=== PATIENT | male | born 1945 | race African-American/Black ===

== ENCOUNTER 2024-10-20 07:16 | Day surgery (SDC) | payer MEDICARE, OTHER ==
[~2024-10-20 07:16] MED LIST: MIDAZOLAM 2 MG/2 ML VIAL IV PRN
[2024-10-20 08:06] LABS: Glucose,Whole Blood 74 mg/dL (70-110)
[2024-10-20] MEDS: IV FLUID CONTINUATION 1,000 ML IV ONE ×2 (08:07→11:33)
[2024-10-20] MEDS: LACTATED RINGERS 1,000 ML IV SCH (08:17)
[2024-10-20] MEDS: HEPARIN SODIUM,PORCINE 5,000 UNIT/ML 1 ML VIAL SQ PRN (08:18)
[2024-10-20] MEDS: DEXAMETHASONE SOD PHOSPHATE 4 MG/ML 1 ML VIAL IV ONE (08:18)
[2024-10-20] MEDS: ONDANSETRON 4 MG/2 ML VIAL IVP ONE (08:18)
[2024-10-20] MEDS: ACETAMINOPHEN TAB 500 MG TAB PO PRN (08:18)
[2024-10-20 08:32] LABS: African American GFR (CKD) 68 (>60 ml/min/1.73 sqM); Anion Gap 5 mmol/L; Blood Urea Nitrogen 24 mg/dL (9-20); Calcium 9.7 mg/dL (8.4-10.2); Carbon Dioxide 30 mmol/L (22-30); Chloride 105 mmol/L (98-107); Glucose 84 mg/dL (74-99); Non-African American GFR(CKD) 59 (>60 ml/min/1.73 sqM); Potassium 4.4 mmol/L (3.5-5.1); Sodium 140 mmol/L (137-145)
[2024-10-20] MEDS ORDERED: LIDOCAINE 1% INJ 10MG/ML (20 ML MDV) ONE (08:50)
[2024-10-20] MEDS ORDERED: MIDAZOLAM 2 MG/2 ML VIAL ONE (08:50)
[2024-10-20] MEDS ORDERED: PROPOFOL 10 MG/ML 20 ML VIAL IV ONE (08:50)
[2024-10-20] MEDS ORDERED: SUCCINYLCHOLINE CHLORIDE 200 MG/10 ML VIAL IV ONE (08:50)
[2024-10-20] MEDS ORDERED: ROCURONIUM 10 MG/ML (5 ML VIAL) IV ONE (08:50)
[2024-10-20] MEDS ORDERED: NEOSTIGMINE 1 MG/ML 10 ML VIAL ONE (08:50)
[2024-10-20] MEDS ORDERED: fentaNYL (PF) 50 MCG/ML 2 ML AMP ONE (08:50)
[2024-10-20] MEDS ORDERED: GLYCOPYRROLATE 0.2 MG/ML 2 ML VIAL ONE (08:50)
[2024-10-20] MEDS ORDERED: HYDROmorphone (PF) 1 MG/ML ONE (08:50)
[2024-10-20] MEDS ORDERED: KETOROLAC 15 MG/ML 1 ML VIAL ONE (08:50)
[2024-10-20] MEDS: ceFAZolin 2 GM in DEXTROSE 5% IN WATER 50 ML IVPB PRN (08:52)
[2024-10-20] MEDS: BUPIVACAINE (PF) 0.25% 30 ML VIAL SQ ONE (09:08)
[2024-10-20] MEDS ORDERED: NALOXONE 0.4 MG/ML 1 ML VIAL IV PRN (10:20)
[2024-10-20] MEDS ORDERED: HYDROmorphone 0.5 MG/0.5 ML SYRINGE IVP PRN (10:20)
[2024-10-20] MEDS ORDERED: ONDANSETRON 4 MG/2 ML VIAL IVP PRN (10:20)
--- NOTE | 2024-10-20 10:25 | P.OP ---
Date of Procedure: 10/20/24 Preoperative Diagnosis: Cholecystitis Postoperative Diagnosis: Severe acute/chronic cholecystitis Procedure(s) Performed: Laparoscopic cholecystectomy Anesthesia: AARON Surgeon: Renzo Mccormack Estimated Blood Loss (ml): 20 Pathology: other (Gallbladder) Condition: stable Disposition: PACU Description of Procedure: T the patient was placed on the operating table. The patient received a general endotracheal tube anesthesia. The patients abdomen was prepped and draped in the usual sterile fashion. Through an infraumbilical stab incision, the fascia of the anterior abdominal wall was grasped with a pair of Kochers and then the Veress needle was placed in the peritoneal cavity. Position of the Veress needle was confirmed with positive drop test. The abdomen was then insufflated. After adequate insufflation, the 10 mm trocar was placed in the peritoneal cavity. Following this the laparoscope was placed in the peritoneal cavity. The patient was placed in the head-up, right side up position and then a 5 mm trocar was placed in the right lateral and right subcostal position under direct visualization. A 8 mm trocar was placed in the epigastric position. The gallbladder was grasped in the fundus and infundibulum. Traction on the gallbladder was placed in the lateral and the cephalad positions. The triangle of Calot was visualized.. The cystic duct was bluntly dissected until the union of the cystic duct and common bile duct was seen. A critical view of safety was achieved. The cystic duct was then divided and sealed with the Harmonic scissors. A PDS Endoloop was then placed throughout the cystic duct stump. The cystic artery divided and sealed with the Harmonic scissors. There was dense inflammatory reaction at the neck of the gallbladder. It was decided to divide the gallbladder just above the cystic duct at the neck of the gallbladder. To avoid any injury to the bile ducts. The gallbladder was then removed from the liver bed using Harmonic scissors. The gallbladder was then extracted through the epigastric port site. Operative field was checked for any bleeding spots and Harmonic scissors was used to coagulate the liver bed. The abdomen was irrigated. The trocars were removed. The skin was closed using interrupted 3-0 Vicryl suture. Dermabond dressing were applied. The patient tolerated the procedure well.
[2024-10-20] MEDS: HYDROmorphone 0.5 MG/0.5 ML SYRINGE IVP PRN (10:28)
[2024-10-20] MEDS: D5-0.45% NACL WITH KCL 20MEQ/L 1,000 ML IV SCH (12:37)
[2024-10-20] MEDS: HYDROcodone/APAP 5-325MG 1 EACH TAB PO PRN (12:42)
[2024-10-20] MEDS ORDERED: SYMBICORT 160-4.5 MCG INHALER INHALATION PRN (12:52)
[2024-10-20] MEDS ORDERED: TIOTROPIUM 2.5 MCG INHALER INHALATION PRN (12:58)
[2024-10-20] MEDS: ALBUTEROL NEBULIZED 2.5 MG/3 ML INHALATION SCH (13:43)
[2024-10-20] MEDS: HYDROmorphone 1 MG/ML 1 ML SYRINGE IVP PRN (21:33)
--- NOTE | 2024-10-21 02:36 | CONS ---
CONSULTATION REASON FOR CONSULTATION: Advice regarding atrial fibrillation, asthma, and other multiple medical issues requested by Surgery. HISTORY OF PRESENT ILLNESS: This 79-year-old gentleman with a past medical history of asthma, atrial fibrillation, underwent laparoscopic cholecystectomy for chronic cholecystitis. There is no history of any fever, rigors, or chills at this time. PAST MEDICAL HISTORY: Atrial fibrillation and asthma. Rest of the chart is also reviewed. HOME MEDICATION: Reviewed and included Crestor. Dose and rest of medications reviewed. ALLERGIES: None. FAMILY HISTORY: No history of heart disease or strokes in the family. SOCIAL HISTORY: No history of smoking. REVIEW OF SYSTEMS: 14-point review of systems is negative except as mentioned earlier. PHYSICAL EXAMINATION: VITAL SIGNS: Pulse is 72, blood pressure 116/64, and respirations 17. HEENT: Conjunctivae normal. NECK: No jugular venous distention. CARDIOVASCULAR: S1, S2. RESPIRATION: Breath sounds diminished at the bases. No rhonchi, no crackles. ABDOMEN: Soft, status post surgery. EXTREMITIES: Legs, no edema. NERVOUS SYSTEM: No focal deficit. LABORATORY DATA: BMP normal. ASSESSMENT: 1. Status post laparoscopic cholecystectomy for chronic cholecystitis. 2. Atrial fibrillation. 3. Asthma. 4. Hyperlipidemia. 5. History of sleep apnea. 6. History of prostate cancer. 7. History of multiple complex medical issues. RECOMMENDATION: 79-year-old gentleman presented after surgery. At this time, the patient is medically stable. Recommend to resume home medications. Eliquis may be initiated once okay with surgery. Otherwise, we will follow the patient closely with you. Incentive spirometry. Resume the home medication, bronchodilators. The patient may be asked to follow up with primary physician closely after discharge. MMODL / IJN: [id number] /
[2024-10-21 08:01] LABS: Basophils # (A) 0.04 X 10*3/uL (0.00-0.10); Basophils % (A) 0.4 %; Eosinophils # (A) 0.03 X 10*3/uL (0.04-0.35); Eosinophils % (A) 0.3 %; HCT 50.8 % (39.6-50.0); HGB 16.2 g/dL (13.0-17.0); Lymphocytes # (A) 1.31 X 10*3/uL (0.90-5.00); Lymphocytes % (A) 13.4 %; MCHC 31.9 g/dL (32.0-37.0); MCV 94.1 FL (80.0-97.0); Mean Platelet Volume 11.7 FL (9.5-12.2); Monocytes # (A) 0.76 X 10*3/uL (0.20-1.00); Monocytes % (A) 7.8 %; NRBC Per 100 WBC 0 X 10*3/uL (0.00-0.01); Neutrophils # (A) 7.57 X 10*3/uL (1.80-7.70); Neutrophils % (A) 77.8 %; Platelet Count 197 X 10*3/uL (140-440); RDW 12.9 % (11.5-14.5); WBC 9.74 X 10*3/uL (4.50-10.00)
[2024-10-21 08:51] VITALS: BP 126/70; PULSE 64; TEMP 97.8
[2024-10-21] MEDS: APIXABAN 5 MG TAB PO SCH (08:53)
[2024-10-21] MEDS: ATORVASTATIN 10 MG TAB PO SCH (08:53)
[2024-10-21 08:58] LABS: ALT 81 U/L (10-49); AST 75 U/L (14-35); Albumin 3.9 g/dL (3.8-4.9); Albumin/Globulin Ratio 1.39 Ratio (1.60-3.17); Alkaline Phosphatase 54 U/L (41-126); BUN/Creat Ratio 14.75 Ratio (12.00-20.00); Blood Urea Nitrogen 17.7 mg/dL (9.0-27.0); Calcium 9.3 mg/dL (8.7-10.3); Carbon Dioxide 23.5 mmol/L (21.6-31.8); Chloride 99 mmol/L (96-109); Globulin 2.8 g/dL (1.6-3.3); Glucose 102 mg/dL (70-110); Potassium 4.7 mmol/L (3.5-5.5); Sodium 135 mmol/L (135-145); Total Bilirubin 0.4 mg/dL (0.3-1.2); Total Protein 6.7 g/dL (6.2-8.2)
[2024-10-21] MEDS ORDERED: ENOXAPARIN 40 MG/0.4 ML SYRINGE SQ SCH (09:00)
[2024-10-21 10:46] VITALS: RESP 20
--- NOTE | 2024-10-21 11:44 | P.DS ---
Providers Expected date of discharge: 10/21/24 Attending physician: Renzo Mccormack Consults: 10/20/24 10:20 Consult Physician Routine Consulting Provider: Jose David Ralph Consult Reason/Comments: med manage Do you want consulting provider notified?: Yes Primary care physician: Lionel Boateng Hospital Course: Discharge diagnosis 1. Severe acute/chronic cholecystitis Hospital course This is a 79-year-old male with severe acute/chronic cholecystitis. He is status post laparoscopic cholecystectomy. He tolerated surgery well. Pain is controlled. He is tolerating diet. He has been up and ambulating. He is afebrile. He is stable for discharge. Please refer to chart for any further details. Physician [facility] note has been reviewed by physician. Signing provider agrees with the documented findings, assessment, and plan of care. Patient Condition at Discharge: Stable Plan - Discharge Summary Discharge Rx Participant: No New Discharge Prescriptions: New Docusate [Colace] 100 mg PO BID #30 capsule HYDROcodone/APAP 5-325MG [[place] 5-325] 1 tab PO Q6HR PRN 3 Days #12 tab PRN Reason: Pain Continue Albuterol Inhaler [Ventolin Hfa Inhaler] 1 - 2 puff INHALATION Q6H PRN PRN Reason: Shortness Of Breath Apixaban [Eliquis] 5 mg PO BID Rosuvastatin Calcium 5 mg PO DAILY Fluticasone/Umeclidin/Vilanter [Trelegy Ellipta 200-62.5-25] 1 puff INHALATION DAILY PRN PRN Reason: Shortness Of Breath Discharge Medication List Albuterol Inhaler [Ventolin Hfa Inhaler] 1 - 2 puff INHALATION Q6H PRN 10/16/24 [History] Apixaban [Eliquis] 5 mg PO BID 10/16/24 [History] Fluticasone/Umeclidin/Vilanter [Trelegy Ellipta 200-62.5-25] 1 puff INHALATION DAILY PRN 10/16/24 [History] Rosuvastatin Calcium 5 mg PO DAILY 10/16/24 [History] Docusate [Colace] 100 mg PO BID #30 capsule 10/21/24 [Rx] HYDROcodone/APAP 5-325MG [[place] 5-325] 1 tab PO Q6HR PRN 3 Days #12 tab 10/21/24 [Rx] Follow up Appointment(s)/Referral(s): Renzo Mccormack MD [STAFF PHYSICIAN] - 10/28/24 1:50 pm Activity/Diet/Wound Care/Special Instructions: No driving while taking [place] No lifting over 10 pounds Shower daily. No soaking or tub baths for 2 weeks Very light activity until you are reevaluated at your follow up appointment with your surgeon Discharge Disposition: HOME SELF-CARE
--- NOTE | 2024-10-21 13:27 | PN ---
PROGRESS NOTE DATE OF SERVICE: 10/21/2024 SUBJECTIVE: This is a 79-year-old gentleman, who was admitted after laparoscopic cholecystectomy, has improved significantly. No chest pain. No palpitation. OBJECTIVE: VITAL SIGNS: Pulse is 64, blood pressure 110/69, respirations 18. CHEST: Clear to auscultation. CARDIOVASCULAR: S1 and S2. ABDOMEN: Soft, status post surgery. LABORATORY DATA: Reviewed. ASSESSMENT: 1. Status post laparoscopic cholecystectomy with chronic cholecystitis. 2. Atrial fibrillation. 3. Asthma. 4. Hyperlipidemia. 5. Obstructive sleep apnea. 6. History of mildly elevated LFTs. RECOMMENDATIONS AND DISCUSSION: I recommend to continue current management and continue symptomatic treatment. Otherwise, I recommend close followup with primary physician to follow up for the LFTs. Otherwise, rest of the recommendations per Surgery. MMODL / IJN: [id number] /
== END 2024-10-21 12:48 | disposition home or self-care (01) ==
LOC: OR 07:16 → 4SSUR 11:44 → OR 10-21 12:48
PROVIDERS: ATTEND Surgery
DX: K80.12 Calculus of gallbladder with acute and chronic cholecystitis without obstruction (principal); I48.91 Unspecified atrial fibrillation; E78.5 Hyperlipidemia, unspecified; J45.909 Unspecified asthma, uncomplicated; G47.33 Obstructive sleep apnea (adult) (pediatric); Z79.01 Long term (current) use of anticoagulants; Z79.899 Other long term (current) drug therapy; Z85.46 Personal history of malignant neoplasm of prostate
CPT/HCPCS: 47562; 94640 ×2; 80048; J1644; J1100; J0690; J2405; J1171 ×2; J0665; 80053; 85025; 88304